=== PATIENT | female | born 1945 | race African-American/Black ===

== ENCOUNTER 2017-02-09 09:46 | Emergency (ER) | payer MEDICARE, OTHER ==
[2017-02-09 10:25] VITALS: BP 146/83; PULSE 64; TEMP 97.6; BMI 24.9
--- NOTE | 2017-02-09 12:35 | PDOC ---
History of Present Illness - General Chief Complaint: Eye Problem Stated Complaint: SWOLLEN RT EYE Time Seen by Provider: 02/09/17 11:55 History Source: Patient Exam Limitations: No Limitations - History of Present Illness Initial Comments: 02/09/17 13:00 My Chief complaint: Swelling of bilateral eyelids and under bilateral eyes 3 days with white discharge History of present illness: Patient is a 71-year-old female with a history of hypertension hepatitis C with cirrhosis here today complaining of swelling of bilateral eyelids left greater than right for the last 3 days with slight swelling of infraorbital area. Patient also reports having white discharge from bilateral eyes. Patient reports that her left eye area is itchy. Patient denies any new lotions, soaps, or medications. Timing/Duration: getting worse (b/l eye lids and below eyes edema, discharge white) Severity: moderate Associated Symptoms: reports: denies symptoms Past History - Past Medical History Allergies/Adverse Reactions: Allergies Allergy/AdvReac Type Severity Reaction Status Date / Time No Known Allergies Allergy Verified 02/09/17 10:21 Home Medications: Ambulatory Orders Diazepam [Valium] 2 mg PO TID PRN #10 tablet 03/04/15 Ibuprofen [Motrin -] 400 mg PO QID #28 tablet 03/04/15 Lisinopril [Prinivil -] 10 mg PO DAILY 03/04/15 Metoprolol Succinate [Toprol Xl -] 50 mg PO BID 03/04/15 COPD: No GI Disorders: Yes (cirrhosis, HEP C) HTN: Yes - Suicide/Smoking/Psychosocial Hx Smoking Status: No Smoking History: Former smoker Have you smoked in the past 12 months: No Number of Cigarettes Smoked Daily: 0 Information on smoking cessation initiated: No 'Breaking Loose' booklet given: 01/24/12 Hx Alcohol Use: No Drug/Substance Use Hx: No Hx Substance Use Treatment: No Review of Systems - Review of Systems Able to Perform ROS?: Yes Constitutional: No: Symptoms Reported HEENTM: Yes: Other (b/l eyes white discharge itchy). No: Eye Pain, Blurred Vision, Tearing Respiratory: No: Symptoms reported Cardiac (ROS): No: Symptoms Reported ABD/GI: No: Symptoms Reported Integumentary: Yes: Other (swelling b/l eyelids and infraorbital area left greater than rt. ) Neurological: No: Symptoms reported *Physical Exam - Vital Signs Last Vital Signs Temp Pulse Resp BP Pulse Ox 97.6 F 64 18 146/83 100 02/09/17 10:21 02/09/17 10:21 02/09/17 10:21 02/09/17 10:21 02/09/17 10:21 - Physical Exam General Appearance: Yes: Appropriately Dressed HEENT: positive: EOMI, ESTIVEN, Other (conjunctiva ). negative: Photophobia Neck: negative: Lymphadenopathy (R), Lymphadenopathy (L) Respiratory/Chest: positive: Lungs Clear, Normal Breath Sounds. negative: Chest Tender, Respiratory Distress Cardiovascular: positive: Regular Rhythm, Regular Rate, S1, S2 Integumentary: positive: Swelling (b/l eyellds left > than rt. and b/l infraorbital area swelling ) Neurologic: positive: Alert, Normal Response, Responsive Medical Decision Making - Medical Decision Making 02/09/17 13:04 Patient is a 71-year-old female with a history of hypertension hepatitis C with cirrhosis here today complaining of swelling of bilateral eyelids left greater than right for the last 3 days with slight swelling of infraorbital area. Patient also reports having white discharge from bilateral eyes. Patient reports that her left eye area is itchy. Patient denies any new lotions, soaps, or medications. She also reports having plugs in her tear ducks put in by Dr. aJrad Braden 09/17/16. Patient denies any change in her vision or any difficulty swallowing or breathing. eye swelling b/l PLAN: called spoke to Dr. Braden's office they will see pt. now *DC/Admit/Observation/Transfer Diagnosis at time of Disposition: Swelling of both eyes - Discharge Dispostion Disposition: HOME Condition at time of disposition: Stable - Referrals Referrals: Paul Cronin MD [Primary Care Provider] - Jarad Deluna MD [Staff Physician] - - Patient Instructions Additional Instructions: Go immediately to Dr. Deluna's office he is expecting you for further evaluation Avoid touching your eyes Patient voiced understanding of discharge instructions and all questions were answered - Post Discharge Activity
== END 2017-02-09 12:54 | disposition home or self-care (01) ==
LOC: JERFT 09:46
DX: H02.845 Edema of left lower eyelid (principal); H02.844 Edema of left upper eyelid; H02.842 Edema of right lower eyelid; H02.841 Edema of right upper eyelid; I10 Essential (primary) hypertension; B19.20 Unspecified viral hepatitis C without hepatic coma; K74.69 Other cirrhosis of liver
CPT/HCPCS: 99281-25

== ENCOUNTER 2017-08-29 10:51 | Emergency (ER) | payer MEDICARE, OTHER ==
[2017-08-29 11:03] VITALS: BMI 25.0
[2017-08-29] MEDS ORDERED: ASPIRIN 81 MG CHEWABLE TABLETS PO ONE (11:51)
--- NOTE | 2017-08-29 11:57 | PDOC ---
History of Present Illness - General Chief Complaint: Pain Stated Complaint: PCP SENT Time Seen by Provider: 08/29/17 11:50 History Source: Patient Exam Limitations: No Limitations - History of Present Illness Initial Comments: This is a 71 YOF with h/o of HTN (on Lasix and Nifedipine), HCV (Tx with Harvoni with resolution), and cirrhosis who p/w three episodes of moderate sharp left-sided chest pain radiating to her sternum, which have occurred three times over the past two weeks, and which last for a few minutes at a time. These episodes have occurred while she is waiting at the bus stop, resting and waiting to board the bus, and she described the location as beneath her left breast at the bottom of the rib cage. She tries to massage the area, and sits and rests, and this does seem to help. The episodes are associated with some rapid heart palpitations. She denies any recent fever, chills, nausea, vomiting , diarrhea, constipation, rash, dysuria, headache, dizziness, lightheadedness, etc. Past History - Past Medical History Allergies/Adverse Reactions: Allergies Allergy/AdvReac Type Severity Reaction Status Date / Time No Known Allergies Allergy Verified 08/29/17 11:03 Home Medications: Ambulatory Orders Diazepam [Valium] 2 mg PO TID PRN #10 tablet 03/04/15 Ibuprofen [Motrin -] 400 mg PO QID #28 tablet 03/04/15 Lisinopril [Prinivil -] 10 mg PO DAILY 03/04/15 Metoprolol Succinate [Toprol Xl -] 50 mg PO BID 03/04/15 COPD: No GI Disorders: Yes (cirrhosis, HEP C) HTN: Yes - Suicide/Smoking/Psychosocial Hx Smoking Status: No Smoking History: Former smoker Have you smoked in the past 12 months: No Number of Cigarettes Smoked Daily: 0 If you are a former smoker, when did you quit?: 2011 Information on smoking cessation initiated: No 'Breaking Loose' booklet given: 01/24/12 Hx Alcohol Use: No Drug/Substance Use Hx: No Hx Substance Use Treatment: No Review of Systems - Review of Systems Able to Perform ROS?: Yes Constitutional: No: Chills, Fever, Unexplained wgt Loss HEENTM: No: Nose Congestion, Throat Pain Respiratory: No: Cough, Shortness of Breath Cardiac (ROS): Yes: Chest Pain, Palpitations ABD/GI: No: Constipated, Diarrhea, Nausea, Vomiting : No: Burning, Dysuria Musculoskeletal: No: Back Pain, Neck Pain Integumentary: No: Bruising, Rash Neurological: No: Headache, Numbness, Tingling, Weakness, Dizziness Endocrine: No: Unexplained Weight Gain, Unexplained Weight Loss *Physical Exam - Vital Signs Last Vital Signs Temp Pulse Resp BP Pulse Ox 97.9 F 55 L 18 123/81 98 08/29/17 11:00 08/29/17 11:00 08/29/17 11:08/29/17 11:08/29/17 11:00 - Physical Exam General Appearance: Yes: Nourished, Appropriately Dressed, Other (pleasant and well appearing older adult female who is answering questions appropriately). No : Apparent Distress HEENT: positive: EOMI, ESTIVEN, Normal ENT Inspection, Normal Voice, Hearing Grossly Normal. negative: Scleral Icterus (R), Scleral Icterus (L), Nasal Congestion Neck: positive: Trachea midline, Supple. negative: Tender, Rigid Respiratory/Chest: positive: Lungs Clear, Normal Breath Sounds. negative: Respiratory Distress, Crackles, Rhonchi, Stridor, Wheezing Cardiovascular: positive: Regular Rhythm, Regular Rate. negative: Murmur Gastrointestinal/Abdominal: positive: Normal Bowel Sounds, Soft. negative: Tender, Organomegaly, Pulsatile Mass, Guarding Musculoskeletal: positive: Normal Inspection. negative: Decreased Range of Motion, Vertebral Tenderness Extremity: positive: Normal Capillary Refill, Normal Inspection, Normal Range of Motion. negative: Tender, Cyanosis Integumentary: positive: Normal Color, Dry, Warm. negative: Erythema, Rash, Bruising Neurologic: positive: solar sales assessor II-XII NML intact, Fully Oriented, Alert, Normal Mood/ Affect, Normal Response, Motor Strength 5/5 Heart Score/ECG Review - History History: Slightly suspicious - Electrocardiogram EKG: Non specific repolarization disturbance - Age Age: >/= 65 - Risk Factors Risk Factors Heart Score: Yes Hx Hypertension, Yes Smoking History Based on the list above the patient has:: 1-2 risk factors - Troponin Troponin: </= normal limit - Score Heart Score - Total: 4 #1 08/29/17 12:11 Sinus bradycardia, rate 57, left axis deviation, T wave inversion in III and flattening in aVF, normal intervals ED Treatment Course - LABORATORY CBC & Chemistry Diagram: 08/29/17 12:13 08/29/17 12:13 - RADIOLOGY Radiology Studies Ordered: Category Date Time Status CHEST PA & LAT [RAD] Stat Radiology 08/29/17 11:51 Ordered Medical Decision Making - Medical Decision Making 08/29/17 12:12 Adult Pt p/w chest pain. Initial Vital Signs Temp Pulse Resp BP Pulse Ox 97.9 F 55 L 18 123/81 98 08/29/17 11:00 08/29/17 11:00 08/29/17 11:00 08/29/17 11:00 08/29/17 11:00 Exam: Well appearing, conversive, chest wall nontender, normal heart and lung and abdominal exams, otherwise normal exam. DDX IBNLT: tachyarrhythmia (e.g. SVT, re-entrant tachycardia, WPW, Brugada, long QT, AF/AFL w/ RVR, MAT, ventricular dysrhythmia), ACS, pericarditis, tamponade, aortic dissection, AAA, PTX, PE, esophageal tear, esophagitis (e.g. pill, infectious), esophageal stricture, esophageal FB, gastritis, PUD, pancreatitis, cholecystitis, cholangitis, colitis, bowel perforation, PNA/ bronchitis, pleurisy, pleuritis, MVP, pulmonary HTN, musculoskeletal, panic/ anxiety, etc. W/U ordered: CBCD CMP Mg Phos Lipase Troponin CK CKMB Coags T&S Blood gas UA UCx EKG CXR. TX ordered: monitor, ASA 324, NTG, O2 via NC if needed, statin, maybe metoprolol. Unlikely ACS as very atypical chest pain, no associated SOB or typical arm/neck radiation. Unlikely pericarditis as pain is not relieved sitting forward, Pt afebrile, no friction rub. Unlikely tamponade as Pt has no triad of hypotension/JVD/muffled heart sounds. Unlikely AD as no ripping/tearing sensation, BP not concerningly elevated, radial pulses equal bilaterally. Unlikely AAA as Pt has no midline pulsatile mass or h/o AAA/AD, denies HTN or connective tissue d/o. Unlikely pneumothorax as VS are wnl, Pt has no recent h/o trauma or falls, not SOB. Unlikely PE as Pt is low-risk according to Wells and Perc tools, no hypoxia or tachycardia or SOB. Unlikely esophageal tear (Viviana-Arias/Boerhaave) as Pt denies recent EtOH or heavy vomiting/wretching. Unlikely esophagitis as Pt denies heavy NSAIDs or pills soon before onset, no immunocompromise/steroids. Unlikely esophageal stricture as the Pt is still able to keep down solids per usual, no prior hx. Unlikely esophageal FB as Pt denies having eaten just prior to onset, no stuck sensation. Unlikely gastritis as Pt denies h/o significant GERD, no overuse of EtOH. Unlikely PUD as Pt does not report relief of pain ~2 hours postprandially or with antacids. Unlikely pancreatitis as Pt denies EtOH use, h/o gallstones, no known hypercalcemia. Unlikely cholecystitis as no postprandial worsening. Unlikely cholangitis as Pt has no fever, clinical jaundice, RUQ pain; also no hypotension or AMS. Unlikely colitis as clinically Pts abdomen is not distended/no ascites, no fever, other VS wnl. Unlikely bowel perforation as Pt does not appear to have acute abdomen, no peritoneal signs. Unlikely PNA/bronchitis as Pt has no SOB, cough, fever, known exposures, h/o recurrent PNA, etc. EKG: Sinus bradycardia, rate 57, left axis deviation, T wave inversion in III and flattening in aVF, normal intervals CXR: Scoliosis, degenerative changes, NADP. Labs: HEART score: 4 but the patient has not had chest pain x24 hours, very atypical presentation for ACS. Repeat VS: Reassessment: ADMIT Repeat cardiac enzymes ordered. HEART score indicated Pt is higher risk and should be managed in hospital with cardiology consult. The Pt is unsafe for discharge at this time. They require further hospital observation, workup, and treatment. Microblog sent to [facility] for admission. Spoke with [facility], in agreement Pt to be admitted to to: Telemetry Decision to Admit order placed to covering attending Consult order placed to cardiology on-call provider. DISCHARGE Repeat cardiac enzymes are negative. 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 On last reassessment VS are stable, Pts pain is resolved, and exam is benign. The Pts HEART score indicates they are low risk and do not require admission currently. The Pt is appropriate for discharge with close outpatient follow up. They are comfortable with this plan and will follow up with their PCP in 1-3 days. Specific return precautions are discussed and they will come back to the ER if necessary. 08/29/17 12:49 *DC/Admit/Observation/Transfer Diagnosis at time of Disposition: Atypical chest pain, Palpitations - Referrals Referrals: Paul Cronin MD [Primary Care Provider] - Chase Miller MD [Staff Physician] - - Patient Instructions Printed Discharge Instructions: DI for Atypical Chest Pain Additional Instructions: You were seen in the ER for episodes of chest pain with palpitations. We did lab work on your blood and urine, an electrocardiogram, and a chest x-ray, and we did not find any concerning abnormalities. Your symptoms did not occur here in the ER. After our assessment, we do not believe you are having a medical emergency at this time, and we believe you are safe to go home. Please follow up with your regular PCP doctor in 1-3 days, and also with a oil house attendant. We are giving you referral information in this packet in case you need a new oil house attendant. Call their clinic as soon as possible, tell them you were seen in the ER, and tell them you need an appointment. You may need to have a Holter monitor or a cardiac event monitor to find out what is happening with your heart during these episodes. If you have any new or worsening symptoms, especially worsening palpitations, chest discomfort, shortness of breath, sweats , nausea, loss of consciousness, dizziness, or other symptoms, please come back to the ER at any time (24 hours a day). If you are having severe or life threatening symptoms, or symptoms that make it unsafe to drive or have someone drive you, please call 911. - Post Discharge Activity
--- NOTE | 2017-08-29 12:15 | PDOC ---
Attending Attestation - HPI HPI: Patient is a 71 F with PMHx of HLD, HTN (on Lasix and Nifedipine), heart murmur, HCV (Tx with Harvoni with resolution), who presents with 3 episodes of chest pain and palpitations over the past couple of weeks. Patient states that she has experienced this pain while waiting for the bus, she states that the chest pain is left-sided, sharp, constant, lasts for 2-3 minutes. She says that it goes away once she sits down on the bus and also states that she massages the area to help with the pain. She also reports associated palpitations. She states that she has never had this pain before. Denies any current chest pain or palpitations. She states that her most recent episode was yesterday. She called her doctor who referred her to the ED for an EKG and chest x-ray. Social Hx: Former smoker Denies fever, chills, nausea, vomiting, diarrhea. Denies headache, dizziness, lightheadedness, numbness or tingling. 08/29/17 12:58 <Meeta Henderson - Last Filed: 08/29/17 12:58> - Resident Resident Name: Bronwyn Ascencio - ED Attending Attestation I have performed the following: I have examined & evaluated the patient, The case was reviewed & discussed with the resident, I agree w/resident's findings & plan, Exceptions are as noted - HPI HPI: 08/29/17 12:54 71-year-old female patient with history of hypertension, cirrhosis, hepatitis C in remission presents with intermittent palpitations and chest discomfort for last several weeks. The last 3 weeks, patient has had brief several minutes of intermittent palpitations with chest discomfort that would resolve on its own. Not exertional. Not associated short of breath, diaphoresis, nausea or vomiting. She does not recall a recent stress or an echocardiogram. Patient called her doctor who advised patient to the ER. She currently has no symptoms. - Physicial Exam PE: 08/29/17 12:55 GENERAL: Awake, alert, and fully oriented, in no acute distress. HEAD: No signs of trauma EYES: EOMI, sclera anicteric, conjunctiva clear ENT: Auricles normal inspection, hearing grossly normal, nares patent NECK: Normal ROM, suppl LUNGS: Breath sounds equal, clear to auscultation bilaterally. No wheezes, and no crackles HEART: Regular rate and rhythm, normal S1 and S2, no murmurs, rubs or gallops EXTREMITIES: Normal range of motion, no edema. No clubbing or cyanosis. No cords, erythema, or tenderness NEUROLOGICAL: Cranial nerves II through XII grossly intact. Normal speech, normal gait SKIN: Warm, Dry, normal turgor, no rashes or lesions noted. - Medical Decision Making 08/29/17 12:57 Vital Signs Temp Pulse Resp BP Pulse Ox 97.9 F 55 L 18 123/81 98 08/29/17 11:00 08/29/17 11:00 08/29/17 11:00 08/29/17 11:00 08/29/17 11:00 Patient has been having intermittent palpitations and chest discomfort for last several weeks. We'll obtain a chest x-ray, troponin and labs including TSH. If workup is unremarkable, the patient be discharged for outpatient follow-up for stress, echo, Holter monitoring. I have low suspicion for active acute coronary syndrome at this time and the patient is comfortable. 08/29/17 13:34 CBC, BMP 08/29/17 12:13 08/29/17 12:53 CMP Sodium 141 mmol/L (136-145) 08/29/17 12:53 Potassium 3.8 mmol/L (3.5-5.1) 08/29/17 12:53 Chloride 105 mmol/L (98-107) 08/29/17 12:53 Carbon Dioxide 30 mmol/L (21-32) 08/29/17 12:53 Anion Gap 6 (8-16) L 08/29/17 12:53 BUN 14 mg/dL (7-18) 08/29/17 12:53 Creatinine 0.8 mg/dL (0.55-1.02) 08/29/17 12:53 Creat Clearance w eGFR > 60 (>60) 08/29/17 12:53 Random Glucose 109 mg/dL (74-106) H 08/29/17 12:53 Calcium 9.3 mg/dL (8.5-10.1) 08/29/17 12:53 Phosphorus 3.4 mg/dL (2.5-4.9) 08/29/17 12:53 Magnesium 2.0 mg/dL (1.8-2.4) 08/29/17 12:53 Total Bilirubin 0.7 mg/dL (0.2-1.0) D 08/29/17 12:53 AST 20 U/L (15-37) 08/29/17 12:53 ALT 20 U/L (12-78) 08/29/17 12:53 Alkaline Phosphatase 88 U/L (45-117) 08/29/17 12:53 Creatine Kinase 51 IU/L (26-192) 08/29/17 12:53 Troponin I < 0.02 ng/ml (0.00-0.05) 08/29/17 12:53 B-Natriuretic Peptide 171.75 pg/ml (5-125) H 08/29/17 12:53 Total Protein 7.5 g/dl (6.4-8.2) 08/29/17 12:53 Albumin 3.9 g/dl (3.4-5.0) 08/29/17 12:53 Lipase Cancelled 08/29/17 12:13 TSH Cancelled 08/29/17 12:13 TSH pending. If unremarkable, can be followed up by cardiology. 08/29/17 14:22 TSH unremarkable. I discussed the physical exam findings, ancillary test results and final diagnoses with the patient. I answered all of the patient's questions. The patient was satisfied with the care received and felt comfortable with the discharge plan and treatment plan. The patient will call their primary care physician within 24 hours to arrange follow-up and will return to the Emergency Department with any new, persistant or worsening symptoms. <Antonio Hodge - Last Filed: 08/29/17 14:23> Heart Score/ECG Review #1 ECG reviewed & interpreted by me at: 12:00 08/29/17 12:15 NSR 57, left axis deviation, TWI III, normal intervals, QTC 424 msec <Antonio Hodge - Last Filed: 08/29/17 14:23>
[2017-08-29] MEDS ORDERED: ASPIRIN 81 MG CHEWABLE TABLETS ONE (12:17)
[2017-08-29 12:21] LABS: EOS % 1.2 % (0-4.5); HEMATOCRIT 41.5 % (32.4-45.2); HEMOGLOBIN 14.6 GM/dL (10.7-15.3); LYMPH % 39.9 % (8-40); MCH 32.5 pg (25.7-33.7); MCHC 35.2 g/dl (32.0-36.0); MEAN CELL VOLUME 92.3 fl (80-96); MONO % 8.4 % (3.8-10.2); NEUT % 49.5 % (42.8-82.8); PLATELET COUNT 185 K/MM3 (134-434); RDW 13.5 % (11.6-15.6); WHITE BLOOD COUNT 8.2 K/mm3 (4.0-10.0)
[2017-08-29 12:28] LABS: URINE APPEARANCE CLEAR; URINE BILIRUBIN NEGATIVE (<2.0 mg/dL); URINE COLOR YELLOW; URINE GLUCOSE (UA) NEGATIVE (NEGATIVE); URINE KETONE NEGATIVE (NEGATIVE); URINE LEUK ESTERASE NEGATIVE (NEGATIVE); URINE NITRITE NEGATIVE (NEGATIVE); URINE PROTEIN NEGATIVE (NEGATIVE)
[2017-08-29 12:33] LABS: INR 1.13 (0.82-1.09); PROTHROMBIN TIME (PATIENT) 12.8 SEC (9.7-13.0)
[2017-08-29 13:23] LABS: ALBUMIN 3.9 g/dl (3.4-5.0); ANION GAP 6 (8-16); BILIRUBIN,TOTAL 0.7 mg/dL (0.2-1.0); BLOOD UREA NITROGEN 14 mg/dL (7-18); CALCIUM 9.3 mg/dL (8.5-10.1); CHLORIDE 105 mmol/L (98-107); CO2 30 mmol/L (21-32); CREATININE 0.8 mg/dL (0.55-1.02); GLUCOSE,RANDOM 109 mg/dL (74-106); PHOSPHOROUS 3.4 mg/dL (2.5-4.9); POTASSIUM 3.8 mmol/L (3.5-5.1); SGOT/AST 20 U/L (15-37); SGPT/ALT 20 U/L (12-78); SODIUM 141 mmol/L (136-145); TOT PROT 7.5 g/dl (6.4-8.2)
[2017-08-29 13:26] LABS: ALK PHOS 88 U/L (45-117); N-TERMINAL BNP 171.75 pg/ml (5-125)
--- NOTE | 2017-08-29 14:23 | PDOC ---
*Physical Exam - Vital Signs Last Vital Signs Temp Pulse Resp BP Pulse Ox 97.9 F 55 L 18 123/81 98 08/29/17 11:00 08/29/17 11:00 08/29/17 11:00 08/29/17 11:00 08/29/17 11:00 ED Treatment Course - LABORATORY CBC & Chemistry Diagram: 08/29/17 12:13 08/29/17 12:53 - ADDITIONAL ORDERS Additional order review: Laboratory Results 08/29/17 08/29/17 08/29/17 12:53 12:53 12:17 PT with INR INR Sodium 141 Potassium 3.8 Chloride 105 Carbon Dioxide 30 Anion Gap 6 L BUN 14 Creatinine 0.8 Creat Clearance w eGFR > 60 Random Glucose 109 H Calcium 9.3 Phosphorus 3.4 Magnesium 2.0 Total Bilirubin 0.7 D AST 20 ALT 20 Alkaline Phosphatase 88 Creatine Kinase 51 Troponin I < 0.02 B-Natriuretic Peptide 171.75 H Cancelled Total Protein 7.5 Albumin 3.9 Lipase TSH 0.39 Urine Color Urine Appearance Urine pH Ur Specific [place] Urine Protein Urine Glucose (UA) Urine Ketones Urine Blood Urine Nitrite Urine Bilirubin Urine Urobilinogen Ur Leukocyte Esterase 08/29/17 08/29/17 08/29/17 12:13 12:13 12:13 PT with INR INR Sodium Cancelled Potassium Cancelled Chloride Cancelled Carbon Dioxide Cancelled Anion Gap Cancelled BUN Cancelled Creatinine Cancelled Creat Clearance w eGFR Cancelled Random Glucose Cancelled Calcium Cancelled Phosphorus Magnesium Total Bilirubin Cancelled AST Cancelled ALT Cancelled Alkaline Phosphatase Cancelled Creatine Kinase Cancelled Troponin I Cancelled B-Natriuretic Peptide Total Protein Cancelled Albumin Cancelled Lipase Cancelled TSH Cancelled Urine Color Yellow Urine Appearance Clear Urine pH 5.0 Ur Specific [place] 1.017 Urine Protein Negative Urine Glucose (UA) Negative Urine Ketones Negative Urine Blood Negative Urine Nitrite Negative Urine Bilirubin Negative Urine Urobilinogen 2.0 H Ur Leukocyte Esterase Negative 08/29/17 12:13 PT with INR 12.80 INR 1.13 Sodium Potassium Chloride Carbon Dioxide Anion Gap BUN Creatinine Creat Clearance w eGFR Random Glucose Calcium Phosphorus Magnesium Total Bilirubin AST ALT Alkaline Phosphatase Creatine Kinase Troponin I B-Natriuretic Peptide Total Protein Albumin Lipase TSH Urine Color Urine Appearance Urine pH Ur Specific [place] Urine Protein Urine Glucose (UA) Urine Ketones Urine Blood Urine Nitrite Urine Bilirubin Urine Urobilinogen Ur Leukocyte Esterase 08/29/17 12:13 RBC 4.50 D MCV 92.3 MCHC 35.2 RDW 13.5 D MPV 8.0 Neutrophils % 49.5 Lymphocytes % 39.9 D Monocytes % 8.4 Eosinophils % 1.2 D Basophils % 1.0 D - Medications Given in the ED: ED Medications Discontinued Medications Generic Name Dose Route Start Last Admin Trade Name Chris PRN Reason Stop Dose Admin Aspirin 162 mg 08/29/17 11:51 08/29/17 12:22 Asa - PO 08/29/17 11:52 162 mg ONCE ONE Administration *DC/Admit/Observation/Transfer Diagnosis at time of Disposition: Atypical chest pain, Palpitations - Discharge Dispostion Disposition: HOME Condition at time of disposition: Stable Decision to Admit order: No - Referrals Referrals: Chase Miller MD [Staff Physician] - Paul Cronin MD [Primary Care Provider] - Xavier Enriquez MD [Staff Physician] - - Patient Instructions Printed Discharge Instructions: DI for Atypical Chest Pain Additional Instructions: You were seen in the ER for episodes of chest pain with palpitations. We did lab work on your blood and urine, an electrocardiogram, and a chest x-ray, and we did not find any concerning abnormalities. Your symptoms did not occur here in the ER. After our assessment, we do not believe you are having a medical emergency at this time, and we believe you are safe to go home. Please follow up with your regular PCP doctor in 1-3 days, and also with a emt basic. We are giving you referral information in this packet in case you need a new emt basic. Call their clinic as soon as possible, tell them you were seen in the ER, and tell them you need an appointment. You may need to have a Holter monitor or a cardiac event monitor to find out what is happening with your heart during these episodes. If you have any new or worsening symptoms, especially worsening palpitations, chest discomfort, shortness of breath, sweats , nausea, loss of consciousness, dizziness, or other symptoms, please come back to the ER at any time (24 hours a day). If you are having severe or life threatening symptoms, or symptoms that make it unsafe to drive or have someone drive you, please call 911. - Post Discharge Activity
[2017-08-29 14:29] VITALS: BP 128/83; PULSE 69; TEMP 97.8
--- NOTE | 2017-08-29 19:38 | EKG ---
Test Reason : Blood Pressure : / mmHG Vent. Rate : 057 BPM Atrial Rate : 057 BPM P-R Int : 156 ms QRS Dur : 078 ms QT Int : 436 ms P-R-T Axes : 019 -33 -01 degrees QTc Int : 424 ms SINUS BRADYCARDIA LEFT AXIS DEVIATION CANNOT RULE OUT ANTERIOR INFARCT , AGE UNDETERMINED ABNORMAL ECG WHEN COMPARED WITH ECG OF 09-FEB-2012 09:34, VENT. RATE HAS DECREASED BY 31 BPM MINIMAL CRITERIA FOR ANTERIOR INFARCT ARE NOW PRESENT Confirmed by CHIQUIS HOLLY, CHIP ([id number]) on 08/29/2017 7:38:11 PM Referred By: Confirmed By:CHIP SIM MD
== END 2017-08-29 14:30 | disposition home or self-care (01) ==
LOC: JER 10:51
DX: R07.89 Other chest pain (principal); I10 Essential (primary) hypertension; E78.00 Pure hypercholesterolemia, unspecified; Z86.19 Personal history of other infectious and parasitic diseases; K74.60 Unspecified cirrhosis of liver
CPT/HCPCS: 36415; 71046-TC-FY; 80053; 81003; 82550; 83735; 83880; 84100; 84443; 84484; 85025; 85610; 87086; 93005; 93010; 99284-25